=== PATIENT | female | born 1960 | race Caucasian/White ===

== ENCOUNTER 2021-04-09 16:59 | Emergency (ER) | payer BC ==
[~2021-04-09] VITALS: Ht 170.2 cm; Wt 94.3 kg
[2021-04-09 16:59] VITALS: BP 220/102
--- NOTE | 2021-04-09 16:59 | NUR ---
PT TO WAIT IN AMBULANCE 1
--- NOTE | 2021-04-09 18:07 | NUR ---
PT MOVED FROM AMBULANCE 1 TO BED 13
[2021-04-09 19:17] LABS: ANION GAP 15.8 (8-16); CARBON DIOXIDE 26.4 mmol/L (21-32); CREATININE 1.3 mg/dL (0.6-1.3); POTASSIUM 3.2 mmol/L (3.5-5.1)
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
[2021-04-09] MEDS ORDERED: POTASSIUM CHLORIDE 10 MEQ TABER PO ONE (20:35)
[2021-04-09] MEDS ORDERED: ACETAMINOPHEN 325 MG TAB PO ONE (20:40)
[2021-04-09 21:47] LABS: BASOPHILS # (AUTO) 0.1 K/uL (0.00-0.22); BASOPHILS % (AUTO) 0.7 % (0.0-2.0); EOSINOPHILS # (AUTO) 0.1 K/uL (0-0.4); EOSINOPHILS % (AUTO) 1.8 % (0.0-4.0); HEMATOCRIT 32.8 % (36-48); HEMOGLOBIN 10.7 g/dL (12.0-16.0); LYMPHOCYTES # (AUTO) 1.9 K/uL (2.5-16.5); LYMPHOCYTES % (AUTO) 24.7 % (20.5-51.1); MEAN CORPUSCULAR HEMOGLOBIN 26 pg (27-31); MEAN CORPUSCULAR HGB CONC 33 g/dL (33-37); MEAN CORPUSCULAR VOLUME 78.6 fL (80-94); MONOCYTES # (AUTO) 0.6 K/uL (0.8-1.0); MONOCYTES % (AUTO) 8.2 % (1.7-9.3); NEUTROPHILS # (AUTO) 5.1 K/uL (1.8-7.7); NEUTROPHILS % (AUTO) 64.6 % (42.2-75.2); PLATELET COUNT (AUTO) 456 K/uL (140-450); RED BLOOD CELL COUNT(AUTO) 4.18 MIL/uL (4.20-5.40); RED CELL DISTRIBUTION WIDTH 15.6 % (11.6-13.7); WHITE BLOOD COUNT (AUTO) 7.9 K/uL (4.8-10.8)
[2021-04-09] MEDS ORDERED: VANCOMYCIN 1,000 MG in DEXTROSE 5% 250 ML IV ONE (22:20)
[2021-04-09] MEDS ORDERED: KETOROLAC 30 MG/ML VIAL IVP ONE (22:40)
[2021-04-10] MEDS ORDERED: cefTRIAXone 1,000 MG VIAL ONE (00:14)
[2021-04-10] MEDS ORDERED: KETOROLAC 30 MG/ML VIAL ONE (00:17)
[2021-04-10] MEDS ORDERED: VANCOMYCIN 1,000 MG VIAL ONE (00:51)
--- NOTE | 2021-04-10 05:00 | NUR ---
pt stated she could not walk and needed to urinate . pt could not ambulate. pt was given bed minaya and stated it was too painful to lift her hips. hernandez cath was inserted by gladys stringer. pt initial ouput was 1600 ml. pt now requesting a muscle relaxer r/t all the pain she is feeling in her back. made aware.
[2021-04-10] MEDS ORDERED: LORazepam 2 MG/ML VIAL IVP ONE (05:15)
--- NOTE | 2021-04-10 06:03 | NUR ---
blood gluscose at 259. pt stated she hasnt taken her dm meds
--- NOTE | 2021-04-10 07:30 | NUR ---
REPORT RECEIVED FROM NICOLAS ROMERO. PATIENT CONTINUITY OF CARE ASSUMED AT THIS TIME.
--- NOTE | 2021-04-10 11:07 | NUR ---
REPORT CALLED INTO [facility]. SPOKE TO RINA SCHWARTZ.
[2021-04-10 11:29] VITALS: BP 170/65
== END 2021-04-10 11:20 | disposition short-term general hospital (02) ==
LOC: MED 16:59
DX: M46.40 Discitis, unspecified, site unspecified (principal); M54.16 Radiculopathy, lumbar region; E87.6 Hypokalemia; I16.0 Hypertensive urgency; E11.9 Type 2 diabetes mellitus without complications; Z20.822 Contact with and (suspected) exposure to COVID-19
CPT/HCPCS: 36415; 70450; 72131; 80048; 83605; 84484; 85025; 85651; 86140; 87040; 87426; 93005; 96365; 96366; 96368; 96375; 99291; J0696; J1885; J2060; J3370